=== PATIENT | female | born 2000 | race African-American/Black ===

== ENCOUNTER 2024-05-21 23:04 | Emergency (ER) | payer SELFPAY ==
[~2024-05-21] VITALS: Ht 180.3 cm; Wt 91.0 kg
[2024-05-22 00:07] VITALS: BP 115/71; PULSE 71; RESP 18; TEMP 98.2; O2SAT 100
[2024-05-22] MEDS: BACITRACIN ZINC OINT UDPKT TOP ONE (01:24)
[2024-05-22] MEDS: LIDOCAINE HCL/PF 1% 10 MG/ML 5ML VIAL INFIL ONE (01:24)
[2024-05-22] MEDS: DOXYCYCLINE HYCLATE 100MG CAPSULE PO ONE (02:20)
== END 2024-05-22 02:45 | disposition home or self-care (01) ==
LOC: ER 23:18
DX: S80.861A Insect bite (nonvenomous), right lower leg, initial encounter (principal); W57.XXXA Bitten or stung by nonvenomous insect and other nonvenomous arthropods, initial encounter; Y93.89 Activity, other specified; Y92.89 Other specified places as the place of occurrence of the external cause; Y99.8 Other external cause status
CPT/HCPCS: 99283; J3490